=== PATIENT | male | born 1955 | race Caucasian/White ===

== ENCOUNTER → 2025-08-31 14:12 | Outpatient (AMB) | payer OTHER, MEDICARE, MEDICAID, SELFPAY ==
--- OUTSIDE RECORDS SUMMARY | 2025-08-29 14:30 | XMS_ITS | Encounter Summary ---
Author Organization [facility] Address [address] [place] [address] Care Team Providers Care Manager Division Name Role Phone Federico Coronel MD Primary Care Provider [phone] Reason for Visit * Reason Comments Anticoagulation Encounter Details Date Type Department Care Team (Latest Contact Info) Description 08/29/2025 2:30 PM EST Clinical Support Coumadin Clinic [address] [phone] Heterozygous factor V Leiden mutation (CMS/HCC V24) (Primary Dx); History of hypercoagulable state; FDC (current) use of anticoagulants; Personal history of DVT (deep vein thrombosis) Social History Tobacco Use Types Packs/Day Years Used Date Smoking Tobacco: Never Smokeless Tobacco: Never Alcohol Use Standard Drinks/Week Comments No 0 (1 standard drink = 0.6 oz pur e alcohol) Sex and Gender Information Value Date Recorded Sex Assigned at Not on file Legal Sex Male 2:17 PM EST Gender Identity Not on file Sexual Orientation Not on file documented as of this encounter Progress Notes * Danni Jha LPN - 08/29/2025 2:30 PM EST Images from the original note were not included. Anticoagulation Summary As of 08/29/2025 INR goal: 2.0-3.0 TTR: 60.0% (1 y) INR used for dosin.2 (08/29/2025) Warfarin maintenance plan: 5 mg (5 mg x 1) every Mon, Wed, Fri; 2.5 mg (5 mg x 0.5) all other days Weekly warfarin total: 25 mg Plan last modified: Danni Jha LPN (08/29/2025) Next INR check: 09/04/2025 Target end date: -- Indications Heterozygous factor V Leiden mutation ([facility] V24) [D68.51] History of hypercoagulable state [Z86.2] FDC (current) use of anticoagulants [Z79.01] Personal history of DVT (deep vein thrombosis) [Z86.718] Anticoagulation Episode Summary INR check location: Anticoagulation Clinic Preferred lab: -- Send INR reminders to: [facility] Comments: -- Anticoagulation Care Providers Provider Role Specialty Phone number Federico Coronel MD Internal Medicine [phone] Patient presents for follow-up of ongoing Warfarin therapy. Patient had his INR drawn via A/C Clinic Draw. Patient denies any significant issues with adherence to the medication regimen. Patient denies experiencing any symptoms of bleeding, such as unusual bruising, nosebleeds, hematuria, or melena. Patient reports feeling generally well and denies any new complaints. Plan of care: New warfarin dose: Decrease dose to by 10% Warfarin education of dietary considerations, medication/supplement interactions, and the need to continue avoiding activities that increase the risk of injury or bleeding reinforced. Patient verbalized understanding of ongoing INR monitoring and dosage change. Patient is aware of the signs of potential complications and knows to contact the clinic if they occur. Anticoagulation Flowsheet updated with new plan of care. Plan discussed with provider, no additional changes at this time. Anticoagulation Clinic Protocol Dose Type Dose Range INR Dose Adjustment # Doses Omitted Recheck Date Mini Dose 1.4-2.0 Very Low <1.2 Consult Provider 0 1 week Low 1.2-1.4 If singular event - no change If 2 in a row or 2 of the last 3 - Increase weekly dose by 10% 0 1 week In Range 1.4-2.0 No adjustment 0 1-4 weeks* High 2.0-3.0 If singular event - no change If 2 in a row or 2 of the last 3 - Decrease weekly dose by 10% 0 1 week Very High >3.0 Consult Provider 2 2 days If OK after 2 days - Decrease weekly dose by 10% 0 1 week Usual Dose 2.0-3.0 Very Low <1.5 Consult Provider 0 1 week Low 1.5-2.0 If singular event - No change If 2 in a row or 2 of the last 3 - Increase weekly dose by 10% 0 1 week In Range 2.0-3.0 No Adjustment 0 1-4 weeks* High >3.0-3.5 If singular event - No change If 2 in a row or 2 of the last 3 - Decrease weekly dose by 10% 0 1 week Very High >3.5-4.0 Consult Provider 1 2 days >4.0 Consult Provider 2 2 days If OK after 2 days - Decrease weekly dose by 10% 0 1 week Mechanical Valve 2.5-3.5 Very Low <1.5 Consult Provider 0 1 week Low 1.5-2.5 If singular event - No change If 2 in a row or 2 of the last 3 - Increase weekly dose by 10% 0 1 week In Range 2.5-3.5 No Adjustment 0 1-4 weeks* High >3.5-4.0 If singular event - No change If 2 in a row or 2 of the last 3 - Decrease weekly dose by 10% 0 1 week Very High >4.0-4.9 Consult Provider 1 2 days >5.0 Consult Provider 2 2 days If OK after 2 days - Decrease weekly dose by 10% 0 1 week * In range 1 week = recheck in 1 week In range 2 weeks = recheck in 2 weeks In range 3 weeks = recheck in 3 weeks In range 4 weeks = recheck in 4 weeks Cosigned by Federico Coronel MD at 08/29/2025 4:45 PM EST documented in this encounter Plan of Treatment Upcoming Encounters Date Type Department Care Team (Late st Contact Info) Description 09/04/2025 1:30 PM EST Office Visit Adult Medicine [facility] [address] [place] [phone] Edna Pacheco, CEO [employer] [address] [place] [address] 09/04/2025 2:30 PM EST Clinical Support Coumadin Clinic - [address] [phone] 09/28/2025 11:00 AM EST Office Visit Gastroenterology - [address] [facility] [address] [place] [address] Shayna Hernandez, TARA [address] [facility] [address] [place] [address] 10/10/2025 1:15 PM EST Office Visit Orthopedic Surgery - [place] [address] [phone] Barrera Barksdale, DPM [address] [phone] 10/12/2025 3:45 PM EST Office Visit Nephrology - [address] [phone] Saul Jewell MD [address] [facility] [address] [place] [address] documented as of this encounter Procedures Procedure Name Priority Date/Time Associated Diagnosis Comments POC PROTIME INR BLOOD Routine 08/29/2025 1:48 PM EST Heterozygous factor V Leiden mutation (CMS/HCC V24) History of hypercoagulable state FDC (current) use of anticoagulants Personal history of DVT (deep vein thrombosis) documented in this encounter Results * POC Protime INR Blood (08/29/2025 1:48 PM EST) Lot Number INR POC 3.2 Prothrombin Time POC Exp Date Blood 08/29/2025 1:48 PM EST us Federico Coronel MD POINT OF CARE TEST ENTER/EDIT O RDERABLES Final Result documented in this encounter Visit Diagnoses Diagnosis Heterozygous factor V Leiden mutation (CMS/HCC V24)- Primary Primary hypercoagulable state History of hypercoagulable state Personal history of diseases of blood and blood-forming organs FDC (current) use of anticoagulants Long-term (current) use of anticoagulants Personal history of DVT (deep vein thrombosis) Personal history of venous thrombosis and embolism documented in this encounter Care Teams Manager Division Relationship Specialty Start Date End Date Federico Coronel MD [address] [place] [phone] PCP - General Internal Medicine 11/09/20 documented as of this encounter
--- NOTE | 2025-08-31 14:13 | A.OFFVIS_ITS ---
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 He is presenting for a follow-up visit and medication refills. He reports ongoing symptoms of paresthesia, described as pins and needles, and pain in his toes. He states his sleep is good, noting that his medication helps. He takes clonazepam 1 tablet at bedtime. Regarding his mood, he feels so-so and denies significant anxiety. [facility] Medical History (Updated 08/31/25 @ 14:15 by Yeni Thomas MD) Diabetic neuropathy Anxiety Congenital deafness Review of Systems Narrative - Neurological: Reports paresthesia in the feet and toe pain. - Psychiatric: Reports feeling so-so but denies significant anxiety. - General: Reports good sleep with the help of medication. Physical Exam Neuro Other: Mental Status: Alert and awake who lip reads and follows commands. He is able to answer questions that way. Cranial Nerves: CN II: Visual chavez full to confrontation, visual acuity intact. CN III, IV, : Pupils equal, round, reactive to light and accommodation. Extraocular movements are normal. CN V: Facial sensation is normal. CN VII: Facial movements symmetrical. CN VIII: Hearing intact to bedside conversation is absent CN IX, X: Palate elevates symmetrically. CN XI: Shoulder shrug and head turn symmetrical. CN XII: Tongue midline without atrophy or fasciculations. Extrapyramidal: Full facial expressions and blinking. No rigidity. Movements are appropriate with no tremor or abnormality. Speech: Minimal and dysphasic. Assessment & Plan Assessment & Plan (1) Tremor: Code(s): R25.1 - Tremor, unspecified Category: Medical (2) Anxiety: Code(s): F41.9 - Anxiety disorder, unspecified Category: Medical (3) Diabetic neuropathy: Code(s): E11.40 - Type 2 diabetes mellitus with diabetic neuropathy, unspecified Category: Medical Qualifiers: Diabetes mellitus type: type 2 Diabetes mellitus complication detail: diabetic polyneuropathy Qualified Code(s): E11.42 - Type 2 diabetes mellitus with diabetic polyneuropathy Plan Impression: 1. Benign essential tremor 2. Congenital deafness 3. Chronic anxiety disorder 4. Diabetic neuropathy and associated discomfort Recommendations: 1. Propranolol extended-release 60 mg 1 a day 2. Clonazepam 1 mg a day 3. Escitalopram 20 mg 1 a day 4. Gabapentin 100 mg 1 at bedtime I reviewed the patient's ongoing neurological symptoms, including paresthesia in his feet. We discussed that his medication, clonazepam, is helping with sleep and that his anxiety is minimal. I have electronically sent refills for his medication. We will have a follow-up visit in one year. Medications: New escitalopram oxalate 20 mg PO DAILY 90 tabs 3RF gabapentin 100 mg PO BEDTIME 90 caps 3RF clonazepam (Klonopin) administer 30 minutes before bedtime 1 mg PO BEDTIME 90 tabs 3RF Refilled propranolol ER 60 mg PO DAILY 90 caps 3RF 90 days Coding Level of Care Code Est Pt Level 4 (85537) Diagnoses Tremor R25.1 Anxiety F41.9 Diabetic polyneuropathy associated with type 2 diabetes mellitus E11.42 Diabetes mellitus type: type 2 Diabetes mellitus complication detail: diabetic polyneuropathy
--- OUTSIDE RECORDS SUMMARY | 2025-08-31 18:27 | XMS_ITS ---
Author Name [facility] Organization Unknown Encounters Encounter Type Encounter Reason Primary Diagnosis Location Date Ambulatory [facility] 06/24/2024 Care Team Organization Name Specialty Phone Email Start Date End Da te [facility] 2024
--- OUTSIDE RECORDS SUMMARY | 2025-08-31 18:27 | XMS_ITS | Clinical Summary ---
Author Organization [facility] Prior to 02/11/25 Address [address] [place] [address] Care Team Providers Care Marine Steam Fitter Helper Name Role Phone Federico Coronel MD Primary Care Provider [phone] Allergies No known active allergies Medications Medication Sig Dispensed Refills Start Date End Date Status loratadine (CLARITIN) 10 MG tablet Take 10 mg by mouth daily. 0 Active escitalopram (LEXAPRO) tablet 10 mg Take 10 mg by mouth daily. 0 Active gabapentin (NEURONTIN) 100 MG capsule Take 100 mg by mouth every night at bedtime. 0 Active meclizine (ANTIVERT) 25 MG tablet Take 25 mg by mouth 3 (three) times a day as needed for dizziness. 0 Active pravastatin (PRAVACHOL) tablet 20 mg Take 20 mg by mouth daily. 0 Active warfarin (COUMADIN) 5 MG tablet Take 5 mg by mouth daily. 0.5-1 tablet daily 0 Active acetaminophen (TYLENOL EXTRA STRENGTH) 500 MG tablet Take 500 mg by mouth every 6 (six) hours as needed. 0 Active diclofenac (VOLTAREN) 50 MG EC tablet Take 50 mg by mouth 2 (two) times a day as needed. With food 0 Active alfuzosin (Uroxatral) 10 MG 24 hr tablet Take 10 mg by mouth daily. 0 Active Active Problems No known active problems Social History Tobacco Use Types Packs/Day Years Used Date Smoking Tobacco: Never Smokeless Tobacco: Never Alcohol Use Standard Drinks/Week Comments Never 0 (1 standard drink = 0.6 oz pur e alcohol) Sex and Gender Information Value Date Recorded Sex Assigned at Not on file Gender Identity Not on file Sexual Orientation Not on file Job Start Date Occupation Industry Not on file Not on file Not on file Last Filed Vital Signs Vital Sign Reading Time Taken Comments Blood Pressure 132/89 04/08/2022 1:43 PM EDT Pulse 103 04/08/2022 1:43 PM EDT Temperature 36.2 C (97.2 F) 04/08/2022 1:43 PM EDT Respiratory Rate - - Oxygen Saturation 97% 04/08/2022 1:43 PM EDT Inhaled Oxygen Concentration - - Weight 97.1 kg (214 lb) 04/08/2022 1:43 PM EDT Height 182.9 cm (6') 07/09/2021 1:40 PM EDT Body Mass Index 29.02 07/09/2021 1:40 PM EDT Plan of Treatment Health Maintenance Due Date Last Done Comments Hepatitis C Screening 1957 Depression Screening 1969 Preventative Health Evaluation 1975 Colon Cancer Screening (Colonoscopy) 2002 DTap / Tdap / Td (2 - Td or Tdap) 06/08/2022 06/08/2012, 03/21/2002 Fall Risk Assessment 2022 Pneumococcal Vaccine (2 of 2 - PCV) 2022 06/08/2012, 03/21/2002 COVID-19 Vaccine (3 - season) 2025 01/20/2021, 12/30/2020 Influenza Vaccine (#1) 2025 , 05/27/2020, 07/11/2019, Additional history exists RSV Adult > 60+ Yrs or (1 - 1-dose 75+ series) 2032 Shingrix-Zoster Vaccine Completed 08/05/2020, 05/27 Hepatitis B Vaccines Aged Out No long er eligible based on patient's age to complete this topic RSV Ped < 20 months Aged Out No longe r eligible based on patient's age to complete this topic Care Teams Marine Steam Fitter Helper Relationship Specialty Start Date End Date Federico Coronel MD PCP - General Internal Medicine 01/01/22
--- OUTSIDE RECORDS SUMMARY | 2025-08-31 18:28 | XMS_ITS | Data Portability ---
Author Organization [facility] Address [address] [place] [address] Care Team Providers Care Peripheral Equipment Operator Name Role Phone [facility] Referring Provider Assessment No assessment recorded. Plan of Treatment Reminders Order Date Submit Date Provider Last Modified By Organization Details Last Modified Time Details Appointments None recorded. Lab None recorded. Referral None recorded. Procedures None recorded. Surgeries None recorded. Imaging None recorded. Medication Orders Flonase Allergy Relief 50 mcg/actua tion nasal spray,jenny pension [phone] [id number], [address] [place], [address], 3 12:37:04 Patient TargetsNo targets recorded. Patient InstructionsNo instructions recorded. Reason for Referral None Reported. Medical Equipment None Reported. Medications Name Sig Start Date Stop Date Status Note LastModified by Organization Details LastModified Time metformin 500 mg tablet TAKE 1 TABLET BY MOUTH TWICE A DAY WITH MEALS active Not Available Not Available No t Available meclizine 25 mg tablet TAKE 1 TABLET BY MOUTH 3 TIMES DAILY NEEDED FOR OTHER (DIZZINESS) . active Not Available Not Available No t Available benzonatate 100 mg capsule TAKE 1 CAPSULE BY MOUTH 3 TIMES A DAY NEEDED FOR COUGH FOR 10 DAYS active Not Available Not Available Not Available warfarin 5 mg tablet PLEASE SEE ATTACHED FOR DETAILED DIRECTIONS active Not Available Not Available N ot Available losartan 25 mg tablet TAKE 1 TABLET BY MOUTH EVERY DAY active Not Available Not Available No t Available pravastatin 20 mg tablet TAKE 1 TABLET BY MOUTH EVERY DAY active Not Available Not Available No t Available gabapentin 100 mg capsule TAKE 1 CAPSULE BY MOUTH EVERY NIGHT AT BEDTIME active Not Available Not Available No t Available propranolol ER 120 mg capsule,24 hr,extended release TAKE 1 CAPSULE BY MOUTH DAILY FOR 360 DAYS. active Not Available Not Available No t Available lorazepam 1 mg tablet TAKE1 TABLET BY MOUTH 3 TIMES A DAY NEEDED FOR ANXIETY, active Not Available Not Available No t Available ketoconazole 2 % topical cream APPLY TO SKIN AND NAILS DAILY FOR 3 MONTHS active Not Available Not Available No t Available fluticasone propionate 50 mcg/actuatio n nasal spray,suspen marii SPRAY 1 SPRAY BY INTRANASAL ROUTE EVERY DAY active Not Available Not Available No t Available loratadine 10 mg tablet TAKE 1 TABLET BY MOUTH EVERY DAY active Not Available Not Available No t Available fenofibrate nanocrystall ized 145 mg tablet TAKE 1 TABLET BY MOUTH EVERY DAY active Not Available Not Available No t Available FreeStyle Lite Strips TEST FASTING BLOOD SUGAR 1 TIME DAILY active Not Available Not Available No t Available Jardiance 10 mg tablet TAKE 1 TABLET BY MOUTH EVERY DAY active Not Available Not Available No t Available Jardiance 25 mg tablet TAKE 1 TABLET BY MOUTH EVERY DAY active Not Available Not Available No t Available Vitals Date Recorded Body temperature Heart rate Oxygen saturation Respiratory rate Systolic And Diastolic Provider Name and Address Organization Details Last Updated DateTime 3 98.7 [degF] 77 /min 98 % 20 /min 129/77 mm[Hg] Not Available [facility] - production 3 11:22:37 Social History None recorded. Functional Status None recorded. Mental Status None recorded. Family History Nothing Reported. Medical History No medical history recorded. Past Encounters Encounter ID Performer Location Encounter Start Date Encounter Closed Date Diagnosis/Indication Diagnosis SNOMED-CT Code Diagnosis ICD10 Code Diagnosis IMO Codes Diagnosis Note [id number] Brandy Russo MD Main - [address] [phone] 03/03/2023 11:22:34 03/05/2023 15:53:05 Viral upper respiratory tract infection [id number] J06.9 67 year old male being evaluated for 5 days of cough, nasal congestion and throat discomfort . Patient reports continued purulent drainage from the nose and a productive cough, with fever on the first day but not since. No SOB, able to eat and drink, using OTC products only. Has a history of seasonal allergies, has no nasal spray currently. Exam notable for normal vital signs, clear lungs and no oropharyng eal erythema or tonsillar exudate. Presentati on consistent with uncomplica caterina viral URI, possibly compounded by congestion from seasonal allergies. Recommende d trial of flonase in addition to supportive measures already in place. Health Concerns Section Related Observation LastModified by Organization Detai ls LastModified Time None Recorded Concern Status LastModified by Organization Details LastModified Time None Recorded Advance Directives Directive None Recorded Payers Insurance Date Sequence Insurance Name Policy Number Policy Patel Covered Member ID Patel Member ID Guarantor Name 08/02/2025 1 [facility] - DOS ON OR AFTER 2022 - DUAL ELIGIBLE - LONGTERM OPTIONS AND ONE CARE (MEDICARE REPLACEMENT/ADV ANTAGE - HMO) Bruno Hutchins [id number] Bruno Liset Notes Date Note Type Note Provider Name and Address Organization Details Recorded Time 03/03/2023 text/html HPI: Experiencing coughing and weakness since last . Coughing to point of pain in lungs, chest, and sides. Fluctuating fever since last ...................... ...................... ...................... ...................... ...................... ...................... ......... CRC Nursing Assessment: Comments: CRC RN did not require any additional information to process this visit. ...................... ...................... ...................... ...................... ...................... ...................... ......... Pull Tab Dealer Note From Rachell Louis: Community Pull Tab Dealer Nicole Louis CCA1 dispatched to a yellow for a 67 yom C/O a cough and weakness. Upon arrival, the pt was ambulatory, PASCAL X4, in no apparent distress, no SOB on exertion. He was deaf and could only communicate via writing/ASL. He stated that 5 days prior, he had a fever, cough, and lethargy. He stated the fever resolved, but that he still felt tired and was coughing. He was also C/O chest wall pain while coughing and a sore throat, producing green phlegm. He stated he had been taking some tylenol and nyquil at night, which helped. He stated he also felt phlegm in his throat and felt nauseous; he denied N/V/D and stated he was drinking plenty of water. He denied fever, dizziness, headache, CP, SOB, abd pain, or urinary S/S. Lung sounds clear, no pedal edema, no pus or white spots in pt's throat when visualized. Flu and covid negative. [facility] consulted; pt was informed that he likely had a viral respiratory infection, and that he should continue to take 1000 mg tylenol every 6 hours, as well as try guafenesin and dextromethorphan for the cough. He was given a rx for a nasal spray and instructed to use lozenges for any sore throat/cough suppression. He was instructed to call [facility] again if he was not feeling better in a few days, or if he got worse. He was given clear written instructions for red flags, and his PCP was contacted on his behalf (with his permission). ...................... ...................... ...................... ...................... ...................... ...................... ......... Disposition: Faisal Russo MD [address] [facility],[address], [place], [phone], [place] CHARLIE ANDREWS 03/03/2023 12:37:08
--- OUTSIDE RECORDS SUMMARY | 2025-08-31 18:28 | XMS_ITS | Clinical Summary ---
Author Organization [address] Address [address] [place] [phone] Phone Care Team Providers Care Manager Aviation Name Role Phone Federico Coronel MD Primary Care Provider [phone] Allergies No known active allergies Medications diclofenac (VOLTAREN) 25 mg EC tablet TAKE 1 TABLET 2X A DAY ONLY DURING PERIODS OF TESTICULAR PAIN TAKE WITH FOOD! 4 Active clotrimazole (LOTRIMIN) 1 % cream Apply to skin and toenails daily for 12 weeks 4 Active escitalopram (LEXAPRO) 20 mg tablet Take 1 tablet (20 mg total) by mouth 1 (one) time each day. 4 Active gabapentin (NEURONTIN) 100 mg capsule Take 100 mg by mouth every night at bedtime. Active blood sugar diagnostic (FreeStyle Lite Strips) test strip Test daily 4 Active ketoconazole (NIZORAL) 2 % cream Apply to affected area twice daily for 14 days Active loratadine (CLARITIN) 10 mg tablet Take 10 mg by mouth daily. Active polyethylene glycol (GoLYTELY) 236-22.74-6.74 -5.86 gram solution Take 240 mL by mouth once for 1 dose. Take 4L by mouth once for one dose. May substitue any PEG. Starting at 6PM the night before your procedure drink 1 8oz glasses at your own pace until rectals run clear. 4 Active propranolol LA (INDERAL LA) 120 mg 24 hr capsule Take 1 capsule (120 mg total) by mouth 1 (one) time each day. 4 Active bisacodyL (DULCOLAX) 5 mg EC tablet TAKE 2 TABLETS BY MOUTH EVERY EVENING 180 tablet 1 5 Active pravastatin (PRAVACHOL) 20 mg tablet Take 1 tablet (20 mg total) by mouth at bedtime. 90 tablet 1 5 Active warfarin (COUMADIN) 5 mg tabletIndication s:Acute embolism and thrombosis of unspecified deep veins of unspecified lower extremity (CMS/HCC V24, CMS/HCC V28) TAKE 1/2-1 TABLET BY MOUTH DIRECTED AT SAME TIME DAILY. CAUSES HEAVY BLEEDING, DO NOT CHANGE DIET 90 tablet 1 5 Active fenofibrate (TRICOR) 145 mg tablet TAKE 1 TABLET (145 MG TOTAL) BY MOUTH 1 (ONE) TIME EACH DAY. AT BEDTIME. 90 tablet 1 5 Active Jardiance 25 mg tablet TAKE 1 TABLET BY MOUTH EVERY DAY 90 tablet 1 5 Active glipiZIDE (GLUCOTROL XL) 10 mg 24 hr tablet TAKE 1 TABLET BY MOUTH EVERY DAY DO NOT CRUSH, CHEW, OR SPLIT 90 tablet 1 5 Active Active Problems Problem Noted Date Diagnosed Date Heterozygous factor V Leiden mutation 08/09/2024 History of hypercoagulable state 08/09/2024 residential (current) use of anticoagulants 2023 Personal history of DVT (deep vein thrombosis) 1 10/09/2023 Thrombocytopenia 06/21/2024 Overview (06/21/2024): Has splenomegaly on CT scan. Microalbuminuria 05/22/2023 Lumbar radiculopathy 08/05/2021 Overview (06/21/2024): Follows with [facility]. Last appointment July 2021. Would consider cortisone injection in the future but needs clearance from cardiology. Pure hypercholesterolemia 02/22/2019 Overview (06/21/2024): Last Assessment & Plan: Very well-controlled lipid profile on current dose statin. Continue. Ascending aorta dilation 05/06/2018 Overview (06/21/2024): ascending aorta at 4.0 cm on echo 2017 Ascending aorta at sinus of valsalva 4.2 in 11/2020 Last Assessment & Plan: The patient had minimal growth between echocardiograms. Repeat echocardiogram periodically to continue to follow. Paroxysmal A-fib 04/27/2017 Overview (06/21/2024): p afib, noted several years ago, with factor V Leiden deficiency and prior DVTs, therefore, chronically anticoagulated with coumadin. He had a 30d monitor in 09/2019 that was normal. This was completed for symptoms of dizziness and palpitations Last Assessment & Plan: The patient does report ongoing palpitations when he exerts himself at times, but his most recent monitor did not show any arrhythmia. His dizziness remains unchanged and he has been referred to neurology by his PCP team. If the patient has recurrent symptoms after treatment by neurology, could consider an repeat 30-day monitor versus ILR, but would only be to explain his symptoms and not address change clerk as he is chronically anticoagulated given his factor V Leiden deficiency. If he agrees, current consideration another consideration could be to trial low-dose beta- new and see if that suppresses any potential arrhythmia. He is again advised to cut back on his diet soda intake and increase his water. Assessment & Plan (05/23/2025 9:32 AM EDT): Orders: ECG 12 lead Right groin pain 07/09/2016 Pulmonary embolism 01/08/2016 Overview (06/21/2024): IMO Update Fall 2015 Pleural mass 10/09/2015 Overview (06/21/2024): Dr. Berger PET scan December 2015, benign per patient, awaiting documentation Nephrolithiasis 07/10/2015 Tubular adenoma 09/24/2011 Overview (06/21/2024): 09/2016: Two tubular adenoma - repeat in 5 years Factor V Leiden mutation 02/04/2011 Type II diabetes mellitus with renal manifestati ons 01/28/2011 DVT (deep venous thrombosis) 03/01/2010 Overview (06/21/2024): DVT L LEG DX 02/18/10 Chronic Coumadin DVT L LEG DX 12/28/15 Congenital deafness 08/15/2008 Overweight (BMI 25.0-29.9) 08/15/2008 Essential hypertension 08/12/2006 Overview (06/21/2024): Last Assessment & Plan: Blood pressure somewhat robust in office unable to recheck as he had to leave to go to another visit in another provider's office. His blood pressure is much better controlled on chart review. For now, continue dietary modification. 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; Personal history of DVT (deep vein thrombosis) 08/14/2025 2:15 PM EST Clinical Support Coumadin [address] [phone] Heterozygous factor V Leiden mutation (CMS/HCC V24) (Primary Dx); History of hypercoagulable state; 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; Personal history of DVT (deep vein thrombosis) 08/07/2025 1:45 PM EST Clinical Support [address] [phone] Heterozygous factor V Leiden mutation (CMS/HCC V24) (Primary Dx); History of hypercoagulable state; residential (current) use of anticoagulants; Personal history of DVT (deep vein thrombosis) 07/31/2025 2:15 PM EST Clinical Support [address] [phone] Heterozygous factor V Leiden mutation (CMS/HCC V24) (Primary Dx); History of hypercoagulable state; 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; Personal history of DVT (deep vein thrombosis) 07/24/2025 2:15 PM EST Clinical Support [address] [phone] Heterozygous factor V Leiden mutation (CMS/HCC V24) (Primary Dx); History of hypercoagulable state; residential (current) use of anticoagulants; Personal history of DVT (deep vein thrombosis) 07/17/2025 2:00 PM EST Clinical Support [address] [phone] Heterozygous factor V Leiden mutation (CMS/HCC V24) (Primary Dx); History of hypercoagulable state; residential (current) use of anticoagulants; Personal history of DVT (deep vein thrombosis) 07/10/2025 1:00 PM EDT Office Visit Orthopedic Surgery - [address] [phone] Barrera Barksdale, DPM Metatarsalgia of both feet (Primary Dx); Hammer toe of left foot; Acquired hammer toe of right foot; Neuritis; Dermatophytosis of nail; Pain in toe of right foot; Pain in toe of left foot; Difficulty walking; Bilateral femoral artery stenosis (CMS/HCC V24); Corns and callosities 06/19/2025 2:20 PM EDT Anticoagulation - Warfarin Visit [address] [phone] Heterozygous factor V Leiden mutation (CMS/HCC V24) (Primary Dx); History of hypercoagulable state; residential (current) use of anticoagulants; Personal history of DVT (deep vein thrombosis) 06/06/2025 8:40 AM EDT Anticoagulation - Warfarin Visit [facility] [address] [phone] Heterozygous factor V Leiden mutation ([facility] V24) (Primary Dx); History of hypercoagulable state; residential (current) use of anticoagulants; Personal history of DVT (deep vein thrombosis) 06/06/2025 8:00 AM EDT Office Visit Adult Medicine [address] [phone] Federico Coronel MD Type 2 diabetes mellitus with stage 3 chronic kidney disease, unspecified whether usp insulin use, unspecified whether stage 3a or 3b CKD (CMS/HCC V24, CMS/HCC V28) (Primary Dx); Paroxysmal A-fib (CMS/HCC V24, CMS/HCC V28); Mixed hyperlipidemia; CKD stage 3a, GFR 45-59 ml/min (CMS/HCC V24, CMS/HCC V28); Deep vein thrombosis (DVT) of proximal lower extremity, unspecified chronicity, unspecified laterality (CMS/HCC V24, CMS/HCC V28); Factor V Leiden mutation (CMS/HCC V24) from Last 3 Months Immunizations Immunization Administration Dates Next Due DTaP, Unspecified 03/21/2002 Influenza Quadravalent, MDCK , 0.5ml, preservative free (Flucelvax) 6mo and older 06/26/2022,07/21/2018 Influenza Quadravalent, MDCK , 0.5ml, with preservative (Flucelvax) 6mo and older 08/05/2017 Influenza trivalent, 0.5mL ( Fluad) 65yo and older 07/12/2025 Influenza trivalent, 0.5mL ( Fluzone High-dose) 65yo and older 05/22/2023 Influenza trivalent, with pr eservative (Fluzone; Afluria) 6mo and older 06/19/2021,05/27/2020,07/11/2019,07/21,06/19/2014,07/19/2013,06/08/2012 Moderna (age 6mo & older) Bi valent, COVID-19, 0.5 mL or 0.25 mL dosage 08/03/2022 Checkr SARS-CoV-2 COVID-19, mRNA, LNP-S, preservative free 12/30/2020 Pneumococcal conjugate 20 va lent (Prevnar 20, PCV 20) 2mo and older 05/22/2023 Pneumococcal polysaccharide 23 valent (Pneumovax 23) 2yo and older 06/08/2012,03/21/2002 Tdap Tetanus diptheria acell ular pertussis (Boostrix; Adacel) 7yo and older 06/08/2012 Zoster recombinant (Shingrix ) 19yo and older 08/05/2020,05/27/2020 Surgical History Surgery Date Site/Laterality Comments COLONOSCOPY 09/23/2011 PROCEDURE: HISTORICAL COLONOSCOPY; COMMENT: tubular adenomas x 3; tubulo villous adenoma x 1. diverticulosis. COLONOSCOPY 09/24/2016 PROCEDURE: HISTORICAL COLONOSCOPY; COMMENT: 2 polyps: Both tubular adenomas. HERNIA REPAIR Right PROCEDURE: LAPAROSCOPY, INGUINAL HERNIA REPAIR Medical History Medical History Date Comments Unspecified hearing loss DX:Unsp ecified hearing loss; COMMENT: hearing and speech impaired Essential hypertension, benign D X:Essential hypertension, benign Portal hypertension ([facility] V24, [facility] V28) DX:Portal hypertension (HCC) Obesity, unspecified 08/15/2008 DX:Obesity, unspecified Type II or unspecified type diabetes mellitus without mention of complication, not stated as uncontrolled 01/28/2011 DX:Type II or unspecified ty pe diabetes mellitus without mention of complication, not stated as uncontrolled Factor V Leiden mutation ([facility] V24) 1 DX:Factor V Leiden mutation (HCC) Atelectasis of right lung 07/10/2015 DX:Ate lectasis of right lung Nephrolithiasis 07/10/2015 DX:Nephrolithias is Anticoagulated on Coumadin 07/26/2015 DX:An ticoagulated on Coumadin H/O right inguinal hernia repair 09/25/2015 DX:H/O right inguinal hernia repair Pleural mass 10/09/2015 DX:Pleural mass; COMMENT: Dr. Berger Thrombocytopenia ([facility] V24) D X:Thrombocytopenia (HCC) PE (pulmonary embolism) 01/08/2016 DX:PE (p ulmonary embolism) Elevated BUN DX:Elevated BUN Hyperlipidemia DX:Hyperlipidemi a Family History Medical History Relation Name Comments Other: CAD Father Hypertension Mother Blindness Neg Hx Cataracts Neg Hx Glaucoma Neg Hx Macular degeneration Neg Hx Strabismus Neg Hx Relation Name Status Comments Brother Alive 2 brothers, hea lthy Father (Age 58) CAD Maternal Grandfather [place] Maternal Grandmother [place] Mother HTN, appediciti s Paternal Grandfather [place] Paternal Grandmother [place] Sister Alive 4 sisters, heal thy x 1 mental illness/MR Social History Tobacco Use Types Packs/Day Years Used Date Smoking Tobacco: Never Smokeless Tobacco: Never Tobacco Cessation:Counseling Given: Not Answered Alcohol Use Standard Drinks/Week Comments No 0 (1 standard drink = 0.6 oz pur e alcohol) Sex and Gender Information Value Date Recorded Sex Assigned at Not on file Legal Sex Male 2:17 PM EST Gender Identity Not on file Sexual Orientation Not on file Last Filed Vital Signs Vital Sign Reading Time Taken Comments Blood Pressure 120/70 06/06/2025 7:59 AM EDT Pulse 64 06/06/2025 7:59 AM EDT Temperature 36.3 C (97.4 F) 06/06/2025 7:59 AM EDT Respiratory Rate 16 05/17/2025 10:1 2 AM EDT Oxygen Saturation 96% 06/06/2025 7:59 AM EDT Inhaled Oxygen Concentration - - Weight 92.9 kg (204 lb 11.2 oz) 06/06/2025 7:59 AM EDT Height 182.9 cm (6' 0.01 ) 06/06/2025 7:59 AM ED T Body Mass Index 27.76 06/06/2025 7:59 AM EDT Plan of Treatment Upcoming Encounters Date Type Department Care Team (Late st Contact Info) Description 09/04/2025 1:30 PM EST Office Visit Adult Medicine [address] [phone] Edna Pacheco NP [address] [place] [address] 09/04/2025 2:30 PM EST Clinical Support Coumadin [address] [phone] 09/28/2025 11:00 AM EST Office Visit Gastroenterology - [address] [facility] [address] [place] [phone] Shayna Hernandez, TARA [address] [facility] [address] [place] [address] 10/10/2025 1:15 PM EST Office Visit Orthopedic Surgery - [place] [address] [facility] [address] [place] [phone] Barrera Barksdale, DPM [address] [facility] [address] [place] [phone] 10/12/2025 3:45 PM EST Office Visit Nephrology [facility] [place] [address] [place] [phone] Saul Jewell MD [address] [facility] [address] [place] [address] Health Maintenance Due Date Last Done Comments Diabetes: Annual Foot Exam 1967 Diabetes: Annual Retina Eye Exam 1967 DTaP,Tdap,and Td Vaccines (3 - Td or Tdap) 06/08/2022 06/08/2012, 03/21/2002, 03/21/2002 Medicare Annual Wellness Visit 08/23/2022 Social Influencers of Health Screening 08/23/2022 Falls Risk Assessment 2022 Depression Screening 09/14/2024 Diabetes: Blood Sugar Control Test (HGBA1C) 12/04/2025 06/06/2025, 12/02/2024, 03/11/2024, Additional history exists COVID-19 Vaccine (6 - Mixed Product risk season) 2026 07/12/2025, 08/03/2022, 2021, Additional history exists Diabetes: Annual GFR (Glomerular Filtration Rate) 05/17/2026 05/17/2025, 12/02/2024, 03/11/2024, Additional history exists Hypertension/CHF/CAD Annual BMP Blood Test 05/17/2026 05/17/2025, 12/02/2024, 03/11/2024, Additional history exists Diabetes: Annual Urine Albumin-Creatinine Ratio (uACR) 06/06/2026 06/06/2025, 12/02/2024, 01/28/2024 Colorectal Cancer Screening: Colonoscopy 12/13/2028 12/14/2023 Cholesterol Screening (Lipid Panel) 06/06/2030 06/06/2025, 12/02/2024, 03/11/2024, Additional history exists Hepatitis C Screening Completed 05/30/2013 Zoster Vaccines Completed 08/05/2020, 05/27/2020 Pneumococcal Vaccine: 50+ Years Completed 05/22/2023, 06/08/2012, 03/21/2002 RSV Immunization Adult Patients Completed 08/05/2024 Influenza Vaccine Completed 07/12/2025, , 05/22/2023, Additional history exists HIB Vaccines Aged Out No longer eligi ble based on patient's age to complete this topic HPV Vaccines Aged Out No longer eligi ble based on patient's age to complete this topic Hepatitis A Vaccines Aged Out No long er eligible based on patient's age to complete this topic Hepatitis B Vaccines Aged Out No long er eligible based on patient's age to complete this topic IPV Vaccines Aged Out No longer eligi ble based on patient's age to complete this topic MMR Vaccines Aged Out No longer eligi ble based on patient's age to complete this topic Meningococcal ACWY Vaccine Aged Out N o longer eligible based on patient's age to complete this topic Meningococcal B Vaccine Aged Out No l onger eligible based on patient's age to complete this topic RSV Immunization Patients Under 20 months Aged Out No longer eligible based on patient's age to complete this topic Varicella Vaccines Aged Out No longer eligible based on patient's age to complete this topic Procedures Procedure Name Priority Date/Time Associated Diagnosis Comments POC PROTIME INR BLOOD Routine 08/29/2025 1:48 PM EST Heterozygous factor V Leiden mutation (CMS/HCC V24) History of hypercoagulable state residential (current) use of anticoagulants Personal history of DVT (deep vein thrombosis) POC PROTIME INR BLOOD Routine 08/21/2025 2:35 PM EST Heterozygous factor V Leiden mutation (CMS/HCC V24) History of hypercoagulable state residential (current) use of anticoagulants Personal history of DVT (deep vein thrombosis) POC PROTIME INR BLOOD Routine 08/21/2025 2:29 PM EST Heterozygous factor V Leiden mutation (CMS/HCC V24) History of hypercoagulable state 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 Personal history of DVT (deep vein thrombosis) POC PROTIME INR BLOOD Routine 08/14/2025 2:26 PM EST Heterozygous factor V Leiden mutation (CMS/HCC V24) History of hypercoagulable state 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 Personal history of DVT (deep vein thrombosis) POC PROTIME INR BLOOD Routine 08/07/2025 1:47 PM EST Heterozygous factor V Leiden mutation (CMS/HCC V24) History of hypercoagulable state 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 Personal history of DVT (deep vein thrombosis) POC PROTIME INR BLOOD Routine 07/31/2025 2:11 PM EST Heterozygous factor V Leiden mutation (CMS/HCC V24) History of hypercoagulable state residential (current) use of anticoagulants Personal history of DVT (deep vein thrombosis) POC PROTIME INR BLOOD Routine 07/24/2025 2:03 PM EST Heterozygous factor V Leiden mutation (CMS/HCC V24) History of hypercoagulable state 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 Personal history of DVT (deep vein thrombosis) POC PROTIME INR BLOOD Routine 07/17/2025 2:03 PM EST Heterozygous factor V Leiden mutation (CMS/HCC V24) History of hypercoagulable state 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 Personal history of DVT (deep vein thrombosis) POC PROTIME INR BLOOD Routine 06/19/2025 2:07 PM EDT Heterozygous factor V Leiden mutation (CMS/HCC V24) History of hypercoagulable state residential (current) use of anticoagulants Personal history of DVT (deep vein thrombosis) PROTHROMBIN TIME WITH INR Routine 06/06/2025 8:54 AM EDT Deep vein thrombosis (DVT) of distal vein of lower extremity, unspecified chronicity, unspecified laterality (CMS/HCC V24, CMS/HCC V28) Factor V Leiden mutation (CMS/HCC V24) Paroxysmal A-fib (CMS/HCC V24, CMS/HCC V28) 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 HEMOGLOBIN A1C Routine 06/06/2025 8:54 AM EDT Type 2 diabetes mellitus with stage 3 chronic kidney disease, unspecified whether usp insulin use, unspecified whether stage 3a or 3b CKD (CMS/HCC V24, CMS/HCC V28) LIPID PANEL WITH REFLEX TO DIRECT LDL Routine 06/06/2025 8:54 AM EDT Type 2 diabetes mellitus with stage 3 chronic kidney disease, unspecified whether usp insulin use, unspecified whether stage 3a or 3b CKD (CMS/HCC V24, CMS/HCC V28) Mixed hyperlipidemia MICROALBUMIN CREATININE URINE RATIO Routine 06/06/2025 8:54 AM EDT Type 2 diabetes mellitus with stage 3 chronic kidney disease, unspecified whether buttermaker insulin use, unspecified whether stage 3a or 3b CKD ([facility]/HCC V24, CMS/HCC V28) POC PROTIME INR BLOOD Routine 06/06/2025 Heterozygous factor V Leiden mutation ([facility] V24) History of hypercoagulable state residential (current) use of anticoagulants Personal history of DVT (deep vein thrombosis) COMPREHENSIVE METABOLIC PANEL Routine 05/17/2025 11:41 AM EDT Diarrhea, unspecified type COLONOSCOPY Routine 12/14/2023 HEPATITIS C SCREENING Routine 05/30/2013 from Last 3 Months or Most Recently Relevant to Health Maintenance Results * POC Protime INR Blood (08/29/2025 1:48 PM EST) Only the most recent of10 resultswithin the time period is included. Lot Number INR POC 3.2 Prothrombin Time POC Exp Date Blood 08/29/2025 1:48 PM EST us Federico Coronel MD POINT OF CARE TEST ENTER/EDIT O RDERABLES Final Result * (ABNORMAL) Lipid panel with reflex to direct LDL (06/06/2025 8:54 AM EDT) Cholesterol 139 0 - 200 mg/dL LAB CHEMISTRY METHOD 06/06/2025 12:52 PM EDT [facility] Triglycerides 210(H) 0 - 150 mg/dL LAB CHEMISTRY METHOD 06/06/2025 12:52 PM EDT [facility] HDL 42 >=40 mg/dL LAB CHEMISTRY METHOD 06/06/2025 12:52 PM EDT [facility] LDL Calculated 55 0 - 100 mg/dL LAB CHEMISTRY METHOD 06/06/2025 12:52 PM EDT [facility] Comment:Estimated LDL Calcul ated using equation: Total cholesterol - HDL cholesterol - (Triglycerides/5) VLDL Cholesterol Marcio 42 mg/dL LAB CHEMISTRY METHOD 06/06/2025 12:52 PM EDT [facility] Non HDL Chol. (LDL+VLDL) 97 <145 mg/dL LAB CHEMISTRY METHOD 06/06/2025 12:52 PM EDT [facility] Chol/HDL Ratio 3.3 0.0 - 4.4 LAB CHEMISTRY METHOD 06/06/2025 12:52 PM EDT [facility] Blood Venous blood specimen / Unknown Venipuncture / Unknown 06/06/2025 8:54 AM EDT 06/06/2025 8:54 AM EDT us Federico Coronel MD LAB BLOOD ORDERABLES Final Resu lt [facility] [address] [place] [address], [place] [phone] * Microalbumin creatinine urine ratio (06/06/2025 8:54 AM EDT) Creatinine, Urine 72.0 mg/dL LAB CHEMISTRY METHOD 06/06/2025 10:35 AM EDT [facility] Microalb, Ur 11.2 0.0 - 29.0 mg/L LAB CHEMISTRY METHOD 06/06/2025 10:35 AM EDT [facility] Microalb/Creat Ratio 16 <30 mg/g creat LAB CHEMISTRY METHOD 06/06/2025 10:35 AM EDT [facility] Urine Urine specimen obtained by clean catch procedure / Unknown Non-blood Collection / Unknown 06/06/2025 8:54 AM EDT 06/06/2025 8:54 AM EDT us Federico Coronel MD LAB URINE ORDERABLES Final Resu lt Performing Organization Address City/[facility]/ZIP Co de Phone Number [facility] [address] [place] [address], [place] [phone] * (ABNORMAL) Prothrombin time with INR (06/06/2025 8:54 AM EDT) Pathologist [facility] Protime 19.7(H) 10.6 - 13.9 sec LAB COAGULATION METHOD 06/06/2025 10:07 AM EDT [facility] INR 1.6 LAB COAGULATION METHOD 06/06/2025 10:07 AM EDT [facility] Blood Venous blood specimen / Unknown Venipuncture / Unknown 06/06/2025 8:54 AM EDT 06/06/2025 8:54 AM EDT us Federico Coronel MD LAB BLOOD ORDERABLES Final Resu lt [facility] [address] [place] [address], [place] [phone] * Hemoglobin A1c (06/06/2025 8:54 AM EDT) [facility] Hemoglobin A1C 5.9 <6.5 % LAB CHEMISTRY METHOD 06/06/2025 10:34 AM EDT [facility] Mean Bld Glu Estim. 123 mg/dL LAB CHEMISTRY METHOD 06/06/2025 10:34 AM T [facility] Blood Venous blood specimen / Unknown Venipuncture / Unknown 06/06/2025 8:54 AM EDT 06/06/2025 8:54 AM EDT us Federico Coronel MD LAB BLOOD ORDERABLES Final Resu lt [facility] [address] [place] [address], [place] [phone] * (ABNORMAL) Comprehensive metabolic panel (05/17/2025 11:41 AM EDT) [facility] Sodium 137 133 - 145 mmol/L LAB CHEMISTRY METHOD 05/17/2025 3:32 PM [facility] Potassium 4.4 3.5 - 5.5 mmol/L LAB CHEMISTRY METHOD 05/17/2025 3:32 PM [facility] Chloride 106 96 - 110 mmol/L LAB CHEMISTRY METHOD 05/17/2025 3:32 PM [facility] CO2 25 21 - 32 mmol/L LAB CHEMISTRY METHOD 05/17/2025 3:32 PM [facility] Anion Gap 6 3 - 11 LAB CHEMISTRY METHOD 05/17/2025 3:32 PM [facility] Glucose 159(H) 70 - 100 mg/dL LAB CHEMISTRY METHOD 05/17/2025 3:32 PM [facility] BUN 34(H) 5 - 25 mg/dL LAB CHEMISTRY METHOD 05/17/2025 3:32 PM [facility] Creatinine 1.35(H) 0.70 - 1.30 mg/dL LAB CHEMISTRY METHOD 05/17/2025 3:32 PM [facility] eGFR 58(L) >=60 mL/min/1. 73m2 LAB CHEMISTRY METHOD 05/17/2025 3:32 PM [facility] Comment:Calculation based on the Chronic Kidney Disease Epidemiology Collaboration (CKD-EPI) equation refit without adjustment for race. BUN/Creatinine Ratio 25.2 LAB CHEMISTRY METHOD 05/17/2025 3:32 PM [facility] Calcium 9.5 8.5 - 10.5 mg/dL LAB CHEMISTRY METHOD 05/17/2025 3:32 PM [facility] AST (SGOT) 29 10 - 42 unit/L LAB CHEMISTRY METHOD 05/17/2025 3:32 PM [facility] ALT (SGPT) 41 10 - 60 unit/L LAB CHEMISTRY METHOD 05/17/2025 3:32 PM [facility] Alkaline Phosphatase 44 42 - 121 unit/L LAB CHEMISTRY METHOD 05/17/2025 3:32 PM [facility] Total Protein 7.4 6.0 - 8.0 g/dL LAB CHEMISTRY METHOD 05/17/2025 3:32 PM [facility] Albumin 4.9 3.2 - 5.0 g/dL LAB CHEMISTRY METHOD 05/17/2025 3:32 PM [facility] Total Bilirubin 1.3 0.0 - 1.4 mg/dL LAB CHEMISTRY METHOD 05/17/2025 3:32 PM [facility] Blood Venous blood specimen / Unknown Venipuncture / Unknown 05/17/2025 11:41 AM EDT 05/17/2025 11:41 AM EDT us Edna Pacheco [employer] LAB BLOOD ORDERABLES Final Re sult [facility] [address] [place] [address], * Colonoscopy (12/14/2023) Colonoscopy no interpretation , abstracted Anatomical Region Laterality Modality Other Historical Provider HEALTH MAINTENANCE Final Result * Hepatitis C Screening (05/30/2013) Hepatitis C Screening abstracted Historical Provider HEALTH MAINTENANCE Final Result from Last 3 Months or Most Recently Relevant to Health Maintenance Insurance [facility] MEDICARE Member Subscriber Plan / Payer (Ef fective 2020-Present) Name:FRANCIA VINCENT Relation to Subscriber:Self Name:Francia Vincent Payer ID:[id number] Group ID:[id number] Type:Not on file Address: [address] [phone] Advance Directives Documents on File Type Date Recorded 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 Expl 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 Health Care Decision (hx) 09/18/2015 AD BHATIA DIRECTIVE Health Care Decision (hx) 09/18/2015 AD BHATIA DIRECTIVE Health Care Decision (hx) 09/18/2015 AD BHATIA DIRECTIVE Health Care Decision (hx) 09/18/2015 AD BHATIA DIRECTIVE Health Care Decision (hx) 09/18/2015 AD BHATIA DIRECTIVE Health Care Decision (hx) 09/18/2015 AD BHATIA DIRECTIVE Health Care Decision (hx) 09/18/2015 AD BHATIA DIRECTIVE Health Care Decision (hx) 09/18/2015 AD BHATIA DIRECTIVE Health Care Decision (hx) 09/18/2015 AD BHATIA DIRECTIVE Health Care Decision (hx) 09/18/2015 AD BHATIA DIRECTIVE Health Care Decision (hx) 09/18/2015 AD BHATIA DIRECTIVE Health Care Decision (hx) 09/18/2015 AD BHATIA DIRECTIVE Health Care Decision (hx) 09/18/2015 AD BHATIA DIRECTIVE Health Care Decision (hx) 09/04/2015 AD BHATIA DIRECTIVE Health Care Decision (hx) 09/04/2015 AD BHATIA DIRECTIVE Health Care Decision (hx) 09/04/2015 AD BHATIA DIRECTIVE Health Care Decision (hx) 09/04/2015 AD BHATIA DIRECTIVE Health Care Decision (hx) 09/04/2015 AD BHATIA DIRECTIVE Health Care Decision (hx) 09/04/2015 AD BHATIA DIRECTIVE Health Care Decision (hx) 09/04/2015 AD BHATIA DIRECTIVE Health Care Decision (hx) 09/04/2015 AD BHATIA DIRECTIVE Health Care Decision (hx) 09/04/2015 AD BHATIA DIRECTIVE Health Care Decision (hx) 09/04/2015 AD BHATIA DIRECTIVE Health Care Decision (hx) 09/04/2015 AD BHATIA DIRECTIVE Health Care Decision (hx) 09/04/2015 AD BHATIA DIRECTIVE Health Care Decision (hx) 09/04/2015 AD BHATIA DIRECTIVE Care Teams Manager Aviation Relationship Specialty Start Date End Date Federico Coronel MD [address] [place] [phone] PCP - General Internal Medicine 11/09/20
== END ==
LOC: HO.HSM 14:13
PROVIDERS: PCP Internal Medicine; Referring Provider Internal Medicine; Visit Provider Psychiatry & Neurology Neurology
DX: R25.1 Tremor, unspecified (principal); F41.9 Anxiety disorder, unspecified; E11.42 Type 2 diabetes mellitus with diabetic polyneuropathy
CPT/HCPCS: 99214

== ENCOUNTER → 2025-08-31 14:12 | Outpatient (BNVA) | payer OTHER, SELFPAY | PROVIDERS: PCP Internal Medicine; Referring Provider Internal Medicine; Visit Provider Psychiatry & Neurology Neurology | DX: R25.1 Tremor, unspecified (principal); F41.9 Anxiety disorder, unspecified; E11.42 Type 2 diabetes mellitus with diabetic polyneuropathy; H90.5 Unspecified sensorineural hearing loss; Z79.899 Other long term (current) drug therapy | CPT/HCPCS: 99212 ==